=== PATIENT | male | born 1985 | race Two or more races ===

== ENCOUNTER 2022-03-21 13:29 | Emergency (ER) | payer SELFPAY ==
[~2022-03-21] VITALS: Ht 193 cm; Wt 88.0 kg
[2022-03-21 15:42] VITALS: BP 97/70
[2022-03-21] MEDS ORDERED: IBUP800T26 PO (17:04)
== END 2022-03-21 17:12 | disposition home or self-care (01) ==
LOC: ER 13:29
DX: S52.132D Displaced fracture of neck of left radius, subsequent encounter for closed fracture with routine healing (principal); S62.101D Fracture of unspecified carpal bone, right wrist, subsequent encounter for fracture with routine healing; X58.XXXD Exposure to other specified factors, subsequent encounter; Y93.89 Activity, other specified; Y92.89 Other specified places as the place of occurrence of the external cause; Y99.8 Other external cause status
CPT/HCPCS: 29125; 73070; 73100